=== PATIENT | male | born 2000 | race Caucasian/White ===

== ENCOUNTER 2018-01-09 20:22 | Emergency (ER) | payer BC, OTHER ==
[2018-01-09 20:47] VITALS: BP 162/85; PULSE 90; RESP 18; TEMP 98.7
[2018-01-09] MEDS ORDERED: DIPH,PERTUS(ACELL)TETVAC-LF 0.5 ML VIAL IM ONE (20:57)
[2018-01-09] MEDS ORDERED: LIDOCAINE 1% (PF) 10MG/ML VIAL SQ STA (21:04)
[2018-01-09] MEDS ORDERED: LIDOCAINE 1% INJ 10MG/ML (20 ML MDV) SQ ONE (21:26)
[2018-01-09] MEDS ORDERED: CEPHALEXIN 500MG STARTER PACK 4 CAP BTL PO STA (21:30)
--- NOTE | 2018-01-09 21:32 | ED ---
Skin/Abscess/FB HPI - General Chief complaint: Skin/Abscess/Foreign Body Stated complaint: [place] in leg Time Seen by Provider: 01/09/18 20:54 Source: patient, RN notes reviewed, old records reviewed Mode of arrival: ambulatory Limitations: no limitations - History of Present Illness Initial comments: This is a 17 year old male with fish hook in L calf. He reports he was working to get a perdomo off the line when the fishook came back and hit his leg. Patient could not take it out himself. He needs a new tetanus vaccine. - Related Data Previous Rx's Medication Instructions Recorded Ondansetron Odt [Zofran ODT] 4 mg PO Q8HR PRN #5 tab 04/15/15 Sulfamethox-Tmp 800-160Mg [Bactrim 1 each PO Q12HR #20 tab 04/15/15 DS 800-160 mg] methylPREDNISolone Dose Pack 4 mg PO DIRECTED #21 package 04/15/15 [Medrol Dose Pack] Cephalexin [Keflex] 500 mg PO Q8HR #21 cap 01/09/18 Allergies Allergy/AdvReac Type Severity Reaction Status Date / Time No Known Allergies Allergy Verified 01/09/18 20:47 Review of Systems ROS Statement: Those systems with pertinent positive or pertinent negative responses have been documented in the HPI. ROS Other: All systems not noted in ROS Statement are negative. Past Medical History Past Medical History: No Reported History History of Any Multi-Drug Resistant Organisms: None Reported Past Surgical History: No Surgical Hx Reported Past Psychological History: No Psychological Hx Reported Smoking Status: Never smoker Past Alcohol Use History: None Reported Past Drug Use History: None Reported General Exam - General Exam Comments Initial Comments: Well appearing 17 year old male. Limitations: no limitations Head exam: Present: atraumatic, normocephalic, normal inspection Eye exam: Present: normal appearance, PERRL, EOMI. Absent: scleral icterus, conjunctival injection, periorbital swelling ENT exam: Present: normal exam, mucous membranes moist Neck exam: Present: normal inspection. Absent: tenderness, meningismus, lymphadenopathy Respiratory exam: Present: normal lung sounds bilaterally. Absent: respiratory distress, wheezes, rales, rhonchi, stridor Cardiovascular Exam: Present: regular rate, normal rhythm, normal heart sounds. Absent: systolic murmur, diastolic murmur, rubs, gallop, clicks Extremities exam: Present: normal inspection, full ROM, normal capillary refill , other ([place] in medial L calf. ). Absent: tenderness, pedal edema, joint swelling, calf tenderness Back exam: Present: normal inspection Neurological exam: Present: alert, oriented X3, CN II-XII intact Psychiatric exam: Present: normal affect, normal mood Course Vital Signs 01/09/18 20:43 Temperature 98.7 F Pulse Rate 90 Respiratory 18 Rate Blood Pressure 162/85 O2 Sat by Pulse 100 Oximetry Procedures - Procedures Initial comment: [place] removal: Skin was cleansed with iodine over L calf. 3 cc of 1% lidocaine instilled around the area of the daysi. I used through and through technique and advanced the hook and daysi through the skin. Daysi was removed with pliers and I reversed the rest of the hook. Wound was irrigated with 2L sterile water and iodine. Medical Decision Making - Medical Decision Making 17 year old male with fishhook in superficial left Calf. I anesthetized the area and removed the hook without difficulty. See procedure note. Patient was given updated TDAP. I will place the patient on keflex for infection prevention. Return parameters discussed. Disposition Clinical Impression: Fish hook injury of lower leg Disposition: HOME SELF-CARE Condition: Good Instructions: Puncture Wound (ED) Additional Instructions: Monitor for any redness, swelling or drainage. Patient should take antibiotics as directed. Return to ED if any alarming signs or symptoms occur. Prescriptions: Cephalexin [Keflex] 500 mg PO Q8HR #21 cap Is patient prescribed a controlled substance at d/c from ED?: No When asked, does pt state using other controlled substances?: No If prescribed controlled substance>3 days was MAPS reviewed?: No If opioid is for acute pain is fill amount 7 days or less?: No If Rx opioid, was Start Talking consent form obtained?: No Referrals: Silvia Emanuel MD [Primary Care Provider] - 1-2 days Time of Disposition: 21:30
== END 2018-01-09 21:41 | disposition home or self-care (01) ==
LOC: EC 20:22
DX: S80.852A Superficial foreign body, left lower leg, initial encounter (principal); Z23 Encounter for immunization; W45.8XXA Other foreign body or object entering through skin, initial encounter
CPT/HCPCS: 90715; 99283; 90471; J2001

== ENCOUNTER 2019-10-11 23:59 | Emergency (ER) | payer BC, OTHER ==
[2019-10-12 00:08] VITALS: BP 147/90; PULSE 106; RESP 18; TEMP 98
--- NOTE | 2019-10-12 00:25 | ED ---
ENT HPI - General Chief complaint: ENT Stated complaint: BLOODY NOSE Time Seen by Provider: 10/12/19 00:11 Source: patient Mode of arrival: ambulatory Limitations: no limitations - History of Present Illness Initial comments: Patient is a 18-year-old male with no significant past medical history presenting to the emergency department with a chief complaint. Patient states the nosebleed occurred about 2 hours ago. States it started on the right nostril as he was sitting on a table. Patient states he did not apply any pressure to the nose, started he inserted multiple pieces of toilet paper. States the bleeding was ongoing for about 20 minutes before it resolved. States one of his family members is a medical professional advised him to come to the ED for evaluation. - Related Data Previous Rx's Medication Instructions Recorded Ondansetron Odt [Zofran ODT] 4 mg PO Q8HR PRN #5 tab 04/15/15 Sulfamethox-Tmp 800-160Mg [Bactrim 1 each PO Q12HR #20 tab 04/15/15 DS 800-160 mg] methylPREDNISolone Dose Pack 4 mg PO DIRECTED #21 package 04/15/15 [Medrol Dose Pack] Cephalexin [Keflex] 500 mg PO Q8HR #21 cap 01/09/18 Allergies Allergy/AdvReac Type Severity Reaction Status Date / Time No Known Allergies Allergy Verified 01/09/18 20:47 Review of Systems ROS Statement: Those systems with pertinent positive or pertinent negative responses have been documented in the HPI. ROS Other: All systems not noted in ROS Statement are negative. Past Medical History Past Medical History: No Reported History History of Any Multi-Drug Resistant Organisms: None Reported Past Surgical History: No Surgical Hx Reported Past Psychological History: No Psychological Hx Reported Smoking Status: Current every day smoker Past Alcohol Use History: None Reported Past Drug Use History: None Reported General Exam Limitations: no limitations General appearance: alert, in no apparent distress Head exam: Present: atraumatic, normocephalic, normal inspection Eye exam: Present: normal appearance, PERRL, EOMI Pupils: Present: normal accommodation ENT exam: Present: normal exam, normal oropharynx (Residual blood in the right nostril. Unable to detect a source of the bleeding. No bleeding detected and posterior pharynx.), mucous membranes moist, TM's normal bilaterally, normal external ear exam Neck exam: Present: normal inspection, full ROM Respiratory exam: Present: normal lung sounds bilaterally Cardiovascular Exam: Present: regular rate, normal rhythm, normal heart sounds Extremities exam: Present: normal inspection, full ROM Back exam: Present: normal inspection, full ROM Neurological exam: Present: alert, oriented X3 Psychiatric exam: Present: normal affect, normal mood Skin exam: Present: warm, dry, intact, normal color Course Vital Signs 10/12/19 00:03 Temperature 98 F Pulse Rate 106 H Respiratory 18 Rate Blood Pressure 147/90 O2 Sat by Pulse 98 Oximetry Medical Decision Making - Medical Decision Making Patient is 18-year-old male presenting to the emergency department with a chief complaint of a nosebleed. Nosebleed occurred for less than 20 minutes patient never applied pressure to the nose. On initial evaluation, the nosebleed had resolved. Physical examination it was not able to locate the source of the bleed. There was some residual blood in the right nostril. This appears to be anterior epistaxis from the right nostril. Patient has no past medical history of any coagulopathies. Patient advised to apply firm pressure to the nose whenever he develops another bleed. He was advised to avoid highly demented areas. I gave the patient a nose clamp. Return parameters discussed with patient was understanding and agreeable. Case discussed with physician. Disposition Clinical Impression: Acute anterior epistaxis Disposition: HOME SELF-CARE Condition: Stable Instructions (If sedation given, give patient instructions): Nosebleed (ED) Additional Instructions: Developed a nosebleed, apply firm pressure on the nose. If he continues to have repetitive nosebleeds, apply Vaseline in both nostrils every morning and night. Avoid highly vented areas. Is patient prescribed a controlled substance at d/c from ED?: No Referrals: Silvia Emanuel MD [Primary Care Provider] - 1-2 days Time of Disposition: 00:25
== END 2019-10-12 00:35 | disposition home or self-care (01) ==
LOC: EC 23:59
DX: R04.0 Epistaxis (principal); F17.200 Nicotine dependence, unspecified, uncomplicated
CPT/HCPCS: 99283

== ENCOUNTER 2021-11-03 12:44 | Emergency (ER) | payer BC, OTHER ==
[2021-11-03 12:47] VITALS: BP 162/83; PULSE 93; RESP 20; TEMP 97
--- NOTE | 2021-11-03 13:20 | XR ---
EXAMINATION TYPE: XR ankle complete RT DATE OF EXAM: 11/03/2021 COMPARISON: Tibia and fibula 09/18/2014 HISTORY: Injury, pain TECHNIQUE: Three-view right ankle FINDINGS: No acute fractures or dislocations are evident. There is some mild soft tissue swelling devika ng the lateral malleolus and anterior ankle. Follow up exams can be performed 7-10 days from acute trauma for continued pain. MRI could be perform ed for soft tissue evaluation. IMPRESSION: 1. No acute osseous abnormality. 2. Soft tissue swelling over the anterior and lateral right ankle
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
== END 2021-11-03 14:07 | disposition home or self-care (01) ==
LOC: EC 12:44
DX: S93.401A Sprain of unspecified ligament of right ankle, initial encounter (principal); F17.200 Nicotine dependence, unspecified, uncomplicated; X50.1XXA Overexertion from prolonged static or awkward postures, initial encounter
CPT/HCPCS: 73610; 99283; L4350

== ENCOUNTER 2025-01-31 10:18 | Emergency (ER) | payer OTHER ==
[2025-01-31 10:47] VITALS: RESP 20
--- NOTE | 2025-01-31 11:02 | ED ---
General Adult HPI - General Chief complaint: Skin/Abscess/Foreign Body Stated complaint: Abd pain Time Seen by Provider: 01/31/25 10:34 Source: patient, RN notes reviewed Mode of arrival: ambulatory Limitations: no limitations - History of Present Illness Initial comments: This is a 24-year-old male presenting for abdominal pain (01/13) x 3 days. Patient endorses pain and erythema around his umbilical region, described as constant and stabbing with associated nausea. Patient denies any lifting prior to start of symptoms or associated fever/chills, constipation, hematochezia, melena, anorexia, vomiting. Onset/Timin -: days(s) Location: abdomen Radiation: non-radiation Severity scale (1-10): 7 Quality: stabbing Consistency: constant Improves with: immobilization Worsens with: movement Associated Symptoms: nausea/vomiting Treatments Prior to Arrival: NSAID - Related Data Previous Rx's Medication Instructions Recorded Ondansetron Odt [Zofran ODT] 4 mg PO Q8HR PRN #5 tab 04/15/15 Sulfamethox-Tmp 800-160Mg [Bactrim 1 each PO Q12HR #20 tab 04/15/15 DS 800-160 mg] methylPREDNISolone Dose Pack 4 mg PO DIRECTED #21 package 04/15/15 [Medrol Dose Pack] Cephalexin [Keflex] 500 mg PO Q8HR #21 cap 01/09/18 Ibuprofen [Motrin] 800 mg PO Q6HR #30 tab 11/03/21 Ibuprofen [Motrin] 800 mg PO Q8HR PRN #30 tab 01/31/25 Allergies Allergy/AdvReac Type Severity Reaction Status Date / Time No Known Allergies Allergy Verified 02/01/25 01:54 Review of Systems ROS Statement: Those systems with pertinent positive or pertinent negative responses have been documented in the HPI. ROS Other: All systems not noted in ROS Statement are negative. Past Medical History Past Medical History: No Reported History History of Any Multi-Drug Resistant Organisms: None Reported Past Surgical History: No Surgical Hx Reported Past Psychological History: No Psychological Hx Reported Smoking Status: Current every day smoker Past Alcohol Use History: None Reported Past Drug Use History: None Reported General Exam Limitations: no limitations General appearance: alert, in no apparent distress Head exam: Present: atraumatic, normocephalic, normal inspection Eye exam: Present: normal appearance, PERRL, EOMI. Absent: scleral icterus, conjunctival injection, periorbital swelling ENT exam: Present: normal exam, mucous membranes moist Neck exam: Present: normal inspection. Absent: tenderness, meningismus, lymphadenopathy Respiratory exam: Present: normal lung sounds bilaterally. Absent: respiratory distress, wheezes, rales, rhonchi, stridor Cardiovascular Exam: Present: regular rate, normal rhythm, normal heart sounds. Absent: systolic murmur, diastolic murmur, rubs, gallop, clicks GI/Abdominal exam: Present: soft, tenderness (Positive significant umbilical tenderness with surrounding erythema), diminished bowel sounds, hypoactive bowel sounds, hernia (Possible small, nonreducible and significantly tender right umbilical hernia). Absent: distended, guarding, rebound, rigid Extremities exam: Present: normal inspection, full ROM, normal capillary refill. Absent: tenderness, pedal edema, joint swelling, calf tenderness Back exam: Present: normal inspection Neurological exam: Present: alert, oriented X3, CN II-XII intact Psychiatric exam: Present: normal affect, normal mood Skin exam: Present: warm, dry, intact, normal color. Absent: rash Course Vital Signs 01/31/25 01/31/25 10:43 13:41 Temperature 97.9 F 98.1 F Pulse Rate 67 72 Respiratory 20 20 Rate Blood Pressure 130/52 126/68 O2 Sat by Pulse 99 99 Oximetry Medical Decision Making - Medical Decision Making Was pt. sent in by a medical professional or institution (, PA, [facility], urgent care, hospital, or [facility]...) When possible be specific @ -No Did you speak to anyone other than the patient for history (EMS, parent, family, police, friend...)? What history was obtained from this source @ -No Did you review nursing and triage notes (agree or disagree)? Why? @ -I reviewed and agree with nursing and triage notes Were old charts reviewed (outside hosp., previous admission, EMS record, old EKG, old radiological studies, urgent care reports/EKG's, [facility] records)? Report findings @ -No old charts were reviewed Differential Diagnosis (chest pain, altered mental status, abdominal pain women, abdominal pain men, vaginal bleeding, weakness, fever, dyspnea, syncope, headache, dizziness, GI bleed, back pain, seizure, CVA, palpatations, mental health, musculoskeletal)? @ -Differential Abdominal Pain Men: Appendicitis, cholecystitis, diverticulosis, ischemic bowel, pancreatitis, hepatitis, UTI, gastroenteritis, AAA, incarcerated hernia, bowel obstruction, constipation, inflammatory bowel, hepatitis, peptic ulcer disease, splenic in farction, perforated viscus, testicular torsion, this is not meant to be an all- inclusive list EKG interpreted by me (3pts min.). @ -Not done X-rays interpreted by me (1pt min.). @ -None done CT interpreted by me (1pt min.). @ -AP CT shows increased attenuation at umbilicus right of midline indicating possible fat-containing hernia with strangulation without evidence of entrapped bowel or drainable abscess. U/S interpreted by me (1pt. min.). @ -None done What testing was considered but not performed or refused? (CT, X-rays, U/S, labs)? Why? @ -None What meds were considered but not given or refused? Why? @ -None Did you discuss the management of the patient with other professionals (professionals i.e. , PA, [employer], lab, RT, psych nurse, nephrology social worker, professor sculpture, teacher, forward air controller/air officer, caseworker intake)? Give summary @ -Dr. Sanchez contacted, advising patient follow-up for outpatient evaluation and treatment. Was smoking cessation discussed for >3mins.? @ -No Was critical care preformed (if so, how long)? @ -No Were there social determinants of health that impacted care today? How? (Homelessness, low income, unemployed, alcoholism, drug addiction, transportation, low edu. Level, literacy, decrease access to med. care, detention, rehab)? @ -No Was there de-escalation of care discussed even if they declined (Discuss DNR or withdrawal of care, Hospice)? DNR status @ -No What co-morbidities impacted this encounter? (DM, HTN, Smoking, COPD, CAD, Cancer, CVA, ARF, Chemo, Hep., AIDS, mental health diagnosis, sleep apnea, morbid obesity)? @ -None Was patient admitted / discharged? Hospital course, mention meds given and route, prescriptions, significant lab abnormalities, going to OR and other pertinent info. @ -Patient provided IV normal saline and Dilaudid. Lab work and UA generally unremarkable. WBC 10.80. AP CT shows increased attenuation at umbilicus right of midline indicating possible fat-containing hernia with strangulation without evidence of entrapped bowel or drainable abscess. Dr. Sanchez contacted, advising patient follow-up for outpatient evaluation and treatment. Dr. Sanchez able to see patient in ER room for personal evaluation prior to discharge. Patient discharged with T3 starter pack with Motrin 800 sent to patient's pharmacy. Discussed patient with Dr. Washington. Undiagnosed new problem with uncertain prognosis? @ -No Drug Therapy requiring intensive monitoring for toxicity (Heparin, Nitro, Insulin, Cardizem)? @ -No Were any procedures done? @ -No Diagnosis/symptom? @ -Strangulated fat-containing umbilical hernia Acute, or Chronic, or Acute on Chronic? @ -Acute Uncomplicated (without systemic symptoms) or Complicated (systemic symptoms)? @ -Uncomplicated Side effects of treatment? @ -No Exacerbation, Progression, or Severe Exacerbation? @ -No Poses a threat to life or bodily function? How? (Chest pain, [place], [place], pneumonia, PE, COPD, DKA, ARF, appy, cholecystitis, CVA, Diverticulitis, Homicidal, Suicidal, threat to staff... and all critical care pts) @ -No - Lab Data Result diagrams: 01/31/25 11:09 01/31/25 11:09 Lab Results 01/31/25 01/31/25 01/31/25 Range/Units 11:09 11:09 11:09 WBC 10.80 H (4.50-10.00) 10*3/uL RBC 5.33 (4.40-5.60) 10*6/uL Hgb 16.5 (13.0-17.0) g/dL Hct 46.2 (39.6-50.0) % MCV 86.7 (80.0-97.0) fL MCH 31.0 (27.0-32.0) pg MCHC 35.7 (32.0-37.0) g/dL Plt Count 256 (140-440) 10*3/uL MPV 10.2 (9.5-12.2) fL Immature Gran % (Auto) 0.3 % Neutrophils % 68.1 % Lymphocytes % 19.8 % Monocytes % 10.5 % Eosinophils % 1.1 % Basophils % 0.2 % Immature Gran # 0.03 (0.00-0.04) 10*3/uL Neutrophils # 7.36 (1.80-7.70) 10*3/uL Lymphocytes # 2.14 (0.90-5.00) 10*3/uL Monocytes # 1.13 H (0.20-1.00) 10*3/uL Eosinophils # 0.12 (0.04-0.35) 10*3/uL Basophils # 0.02 (0.00-0.10) 10*3/uL Sodium 141 (137-145) mmol/L Potassium 4.2 (3.5-5.1) mmol/L Chloride 101 (98-107) mmol/L Carbon Dioxide 27 (22-30) mmol/L Anion Gap 13 mmol/L BUN 14 (9-20) mg/dL Creatinine 0.98 (0.66-1.25) mg/dL Est GFR (CKD-EPI)AfAm >90 (>60 ml/min/1.73 sqM) Est GFR (CKD-EPI)NonAf >90 (>60 ml/min/1.73 sqM) Glucose 98 (74-99) mg/dL Plasma Lactic Acid John (0.7-2.0) mmol/L Calcium 9.6 (8.4-10.2) mg/dL Total Bilirubin 1.0 (0.2-1.3) mg/dL AST 29 (17-59) U/L ALT 41 (4-49) U/L Alkaline Phosphatase 57 (38-126) U/L Total Protein 7.2 (6.3-8.2) g/dL Albumin 4.6 (3.5-5.0) g/dL Urine Color Colorless Urine Appearance Clear (Clear) Urine pH 7.0 (5.0-8.0) Ur Specific [place] 1.008 (1.001-1.035) Urine Protein Negative (Negative) Urine Glucose (UA) Negative (Negative) Urine Ketones Negative (Negative) Urine Blood Negative (Negative) Urine Nitrite Negative (Negative) Urine Bilirubin Negative (Negative) Urine Urobilinogen <2.0 (<2.0) mg/dL Ur Leukocyte Esterase Negative (Negative) 01/31/25 Range/Units 11:09 WBC (4.50-10.00) 10*3/uL RBC (4.40-5.60) 10*6/uL Hgb (13.0-17.0) g/dL Hct (39.6-50.0) % MCV (80.0-97.0) fL MCH (27.0-32.0) pg MCHC (32.0-37.0) g/dL Plt Count (140-440) 10*3/uL MPV (9.5-12.2) fL Immature Gran % (Auto) % Neutrophils % % Lymphocytes % % Monocytes % % Eosinophils % % Basophils % % Immature Gran # (0.00-0.04) 10*3/uL Neutrophils # (1.80-7.70) 10*3/uL Lymphocytes # (0.90-5.00) 10*3/uL Monocytes # (0.20-1.00) 10*3/uL Eosinophils # (0.04-0.35) 10*3/uL Basophils # (0.00-0.10) 10*3/uL Sodium (137-145) mmol/L Potassium (3.5-5.1) mmol/L Chloride (98-107) mmol/L Carbon Dioxide (22-30) mmol/L Anion Gap mmol/L BUN (9-20) mg/dL Creatinine (0.66-1.25) mg/dL Est GFR (CKD-EPI)AfAm (>60 ml/min/1.73 sqM) Est GFR (CKD-EPI)NonAf (>60 ml/min/1.73 sqM) Glucose (74-99) mg/dL Plasma Lactic Acid John 0.8 (0.7-2.0) mmol/L Calcium (8.4-10.2) mg/dL Total Bilirubin (0.2-1.3) mg/dL AST (17-59) U/L ALT (4-49) U/L Alkaline Phosphatase (38-126) U/L Total Protein (6.3-8.2) g/dL Albumin (3.5-5.0) g/dL Urine Color Urine Appearance (Clear) Urine pH (5.0-8.0) Ur Specific [place] (1.001-1.035) Urine Protein (Negative) Urine Glucose (UA) (Negative) Urine Ketones (Negative) Urine Blood (Negative) Urine Nitrite (Negative) Urine Bilirubin (Negative) Urine Urobilinogen (<2.0) mg/dL Ur Leukocyte Esterase (Negative) Disposition Clinical Impression: Strangulated umbilical hernia Disposition: HOME SELF-CARE Condition: Fair Instructions (If sedation given, give patient instructions): Umbilical Hernia (ED) Additional Instructions: Alternate Tylenol/Motrin every 4 hours for pain. Follow-up with general surgeon for ongoing management of fat-containing strangulated umbilical hernia Prescriptions: Ibuprofen [Motrin] 800 mg PO Q8HR PRN #30 tab PRN Reason: Pain Is patient prescribed a controlled substance at d/c from ED?: No Referrals: Silvia Emanuel MD [Primary Care Provider] - 1-2 days Don David MD [STAFF PHYSICIAN] - 02/03/25 Time of Disposition: 13:26
[2025-01-31] MEDS: SODIUM CHLORIDE 0.9% 1,000 ML IV STA (11:08)
[2025-01-31] MEDS: HYDROmorphone 1 MG/ML 1 ML SYRINGE IVP STA (11:15)
[2025-01-31 11:18] LABS: Basophils # (A) 0.02 10*3/uL (0.00-0.10); Basophils % (A) 0.2 %; Eosinophils # (A) 0.12 10*3/uL (0.04-0.35); Eosinophils % (A) 1.1 %; HCT 46.2 % (39.6-50.0); HGB 16.5 g/dL (13.0-17.0); Lymphocytes # (A) 2.14 10*3/uL (0.90-5.00); Lymphocytes % (A) 19.8 %; MCH 31.0 pg (27.0-32.0); MCHC 35.7 g/dL (32.0-37.0); MCV 86.7 fL (80.0-97.0); Monocytes # (A) 1.13 10*3/uL (0.20-1.00); Monocytes % (A) 10.5 %; Neutrophils # (A) 7.36 10*3/uL (1.80-7.70); Neutrophils % (A) 68.1 %; Platelet Count 256 10*3/uL (140-440); RBC 5.33 10*6/uL (4.40-5.60); RDW 12.7 % (11.5-14.5); WBC 10.80 10*3/uL (4.50-10.00)
[2025-01-31 11:19] LABS: Bilirubin,Urine Negative (Negative); Blood,Urine Negative (Negative); Color,Urine Colorless; Glucose,Urine (UA) Negative (Negative); Ketones,Urine Negative (Negative); Leukocyte Esterase,Urine Negative (Negative); Nitrite,Urine Negative (Negative); PH, Urine 7.0 (5.0-8.0); Protein,Urine Negative (Negative); Specific Gravity,Urine 1.008 (1.001-1.035); Urobilinogen,Urine <2.0 mg/dL (<2.0)
[2025-01-31 11:35] LABS: ALT 41 U/L (4-49); AST 29 U/L (17-59); African American GFR (CKD) >90 (>60 ml/min/1.73 sqM); Albumin 4.6 g/dL (3.5-5.0); Alkaline Phosphatase 57 U/L (38-126); Anion Gap 13 mmol/L; Blood Urea Nitrogen 14 mg/dL (9-20); Calcium 9.6 mg/dL (8.4-10.2); Carbon Dioxide 27 mmol/L (22-30); Chloride 101 mmol/L (98-107); Glucose 98 mg/dL (74-99); Non-African American GFR(CKD) >90 (>60 ml/min/1.73 sqM); Potassium 4.2 mmol/L (3.5-5.1); Sodium 141 mmol/L (137-145); Total Protein 7.2 g/dL (6.3-8.2)
--- NOTE | 2025-01-31 12:24 | CT ---
EXAMINATION TYPE: CT abdomen pelvis w con DATE OF EXAM: 01/31/2025 12:03 PM COMPARISON: None. CLINICAL INDICATION: Male, 24 years old with history of Nonreducible umbilical hernia, TTP, Nonreduci ble umbilical hernia, TTP TECHNIQUE:CT scan of the abdomen and pelvis is performed without Oral Contrast and with IV Contrast, patient injected with 100ml mL of Isovue 300. CT DLP: 1160.6 mGycm, Automated exposure control for dose reduction was used. FINDINGS: LUNG BASES-: No visible nodule. No infiltrate. LIVER/GB: No calcified gallstones. No space occupying hepatic lesion. Biliary tree is of normal ca liber. PANCREAS: No inflammation. No distinct mass. SPLEEN: No splenic enlargement. No lesion seen. ADRENALS: No nodule. No thickening. KIDNEYS/BLADDER: No hydronephrosis. No nephrolithiasis. No distinct renal mass. Urinary bladder g rossly unremarkable. BOWEL: Normal appendix. Normal bowel caliber. No inflammation. GENITAL ORGANS: No gross abnormality. LYMPH NODES: No greater than 1cm abdominal or pelvic lymph nodes are appreciated. AORTA: No significant abnormality. OSSEOUS STRUCTURES: No significant abnormality is seen. OTHER: There is increased attenuation at the level of the umbilicus just to the right of midline. The re is no evidence for entrapped bowel. This could reflect fat containing hernia with strangulation an d therefore increased attenuation. Correlate clinically. Underlying infection is not excluded. No [place] inable abscess seen. IMPRESSION: 1. There is increased attenuation at the level of the umbilicus just to the right of midline. There i s no evidence for entrapped bowel. This could reflect fat containing hernia with strangulation and th erefore increased attenuation. Correlate clinically. Underlying infection is not excluded. No drainab le abscess seen. [facility], , 01/31/2025 12:22 PM
[2025-01-31] MEDS: ACET/COD 300 MG/30 MG STARTER PACK TAB BTL PO STA (13:35)
--- NOTE | 2025-01-31 13:36 | P.GSCN ---
History of Present Illness Consult date: 01/31/25 History of present illness: CHIEF COMPLAINT: Umbilical hernia HISTORY OF PRESENT ILLNESS: This is a 24-year-old male who presented to the hospital with complaints of pain at his bellybutton for about 3 days. Patient reports he is had hernia there for a while. CT scan abdomen pelvis reports increased attenuation at the level of the umbilicus just to the right of the midline. No evidence of entrapped bowel. This could reflect fat-containing hernia with strangulation. No leukocytosis present. Afebrile. Patient seen and examined with Dr. David PAST MEDICAL HISTORY: none PAST SURGICAL HISTORY: none MEDICATIONS: See below ALLERGIES: See below SOCIAL HISTORY: No illicit drug use. REVIEW OF SYSTEMS: CONSTITUTIONAL: Denies fever or chills. HEENT: Denies blurred vision, vision changes, or eye pain. Denies hemoptysis CARDIOVASCULAR: Denies chest pain or pressure. RESPIRATORY: No shortness of breath. GASTROINTESTINAL: See HPI for pertinent findings HEMATOLOGIC: Denies bleeding disorders. GENITOURINARY: Denies any blood in urine or increased urinary frequency. SKIN: Denies pruitis. Denies rash. PHYSICAL EXAM: VITAL SIGNS: Reviewed GENERAL: Well-developed in no acute distress. HEENT: No sclera icterus. Extraocular movements grossly intact. Moist buccal mucosa. Head is atraumatic, normocephalic. No nasal drainage. ABDOMEN: Soft. Nondistended. Tenderness at the umbilicus. Mild erythema. Small umbilical hernia nonreducible NEUROLOGIC: Alert and oriented. Cranial nerves II through XII grossly intact. LABORATORY DATA: WBC 10.8 Hgb 16.5 IMAGING: CT scan as stated above ASSESSMENT: 1. Fat incarcerated umbilical hernia PLAN: - Recommend outpatient repair of umbilical hernia - Motrin as needed for pain - Okay for discharge from surgical standpoint Physician Efficiency Engineer note has been reviewed by physician. Signing provider agrees with the documented findings, assessment, and plan of care. Past Medical History Past Medical History: No Reported History History of Any Multi-Drug Resistant Organisms: None Reported Past Surgical History: No Surgical Hx Reported Past Psychological History: No Psychological Hx Reported Smoking Status: Current every day smoker Past Alcohol Use History: None Reported Past Drug Use History: None Reported Medications and Allergies Home Medications Medication Instructions Recorded Confirmed Type Ondansetron Odt [Zofran ODT] 4 mg PO Q8HR PRN #5 tab 04/15/15 Rx Sulfamethox-Tmp 800-160Mg [Bactrim 1 each PO Q12HR #20 tab 04/15/15 Rx DS 800-160 mg] methylPREDNISolone Dose Pack 4 mg PO DIRECTED #21 package 04/15/15 Rx [Medrol Dose Pack] Cephalexin [Keflex] 500 mg PO Q8HR #21 cap 01/09/18 Rx Ibuprofen [Motrin] 800 mg PO Q6HR #30 tab 11/03/21 Rx Ibuprofen [Motrin] 800 mg PO Q8HR PRN #30 tab 01/31/25 Rx Allergies Allergy/AdvReac Type Severity Reaction Status Date / Time No Known Allergies Allergy Verified 01/31/25 10:47 Surgical - Exam Vital Signs Temp Pulse Resp BP Pulse Ox 97.9 F 67 20 130/52 99 01/31/25 10:43 01/31/25 10:43 01/31/25 10:43 01/31/25 10:43 01/31/25 10:43 Results - Labs 01/31/25 11:09 01/31/25 11:09 Abnormal Lab Results - Last 24 Hours (Table) 01/31/25 Range/Units 11:09 WBC 10.80 H (4.50-10.00) 10*3/uL Monocytes # 1.13 H (0.20-1.00) 10*3/uL Diabetes panel 01/31/25 Range/Units 11:09 Sodium 141 (137-145) mmol/L Potassium 4.2 (3.5-5.1) mmol/L Chloride 101 (98-107) mmol/L Carbon Dioxide 27 (22-30) mmol/L BUN 14 (9-20) mg/dL Creatinine 0.98 (0.66-1.25) mg/dL Glucose 98 (74-99) mg/dL Calcium 9.6 (8.4-10.2) mg/dL AST 29 (17-59) U/L ALT 41 (4-49) U/L Alkaline Phosphatase 57 (38-126) U/L Total Protein 7.2 (6.3-8.2) g/dL Albumin 4.6 (3.5-5.0) g/dL Calcium panel 01/31/25 Range/Units 11:09 Calcium 9.6 (8.4-10.2) mg/dL Albumin 4.6 (3.5-5.0) g/dL Pituitary panel 01/31/25 Range/Units 11:09 Sodium 141 (137-145) mmol/L Potassium 4.2 (3.5-5.1) mmol/L Chloride 101 (98-107) mmol/L Carbon Dioxide 27 (22-30) mmol/L BUN 14 (9-20) mg/dL Creatinine 0.98 (0.66-1.25) mg/dL Glucose 98 (74-99) mg/dL Calcium 9.6 (8.4-10.2) mg/dL Adrenal panel 01/31/25 Range/Units 11:09 Sodium 141 (137-145) mmol/L Potassium 4.2 (3.5-5.1) mmol/L Chloride 101 (98-107) mmol/L Carbon Dioxide 27 (22-30) mmol/L BUN 14 (9-20) mg/dL Creatinine 0.98 (0.66-1.25) mg/dL Glucose 98 (74-99) mg/dL Calcium 9.6 (8.4-10.2) mg/dL Total Bilirubin 1.0 (0.2-1.3) mg/dL AST 29 (17-59) U/L ALT 41 (4-49) U/L Alkaline Phosphatase 57 (38-126) U/L Total Protein 7.2 (6.3-8.2) g/dL Albumin 4.6 (3.5-5.0) g/dL
[2025-01-31 13:43] VITALS: BP 126/68; PULSE 72; TEMP 98.1
== END 2025-01-31 13:43 | disposition home or self-care (01) ==
LOC: EC 10:18
CPT/HCPCS: 36415; 74177; 80053; 81003; 83605; 85025; 96361; 96374; 99283

== ENCOUNTER 2025-02-01 01:37 | Emergency (ER) | payer OTHER ==
[2025-02-01 01:54] VITALS: TEMP 97.9
--- NOTE | 2025-02-01 03:34 | ED ---
General Adult HPI - General Source: patient, RN notes reviewed Mode of arrival: ambulatory Limitations: no limitations <Serina Webber - Last Filed: 02/01/25 03:34> <Arline Regalado - Last Filed: 02/03/25 11:55> - General Chief complaint: Recheck/Abnormal Lab/Rx Stated complaint: hernia leaking Time Seen by Provider: 02/01/25 01:55 - History of Present Illness Initial comments: Patient is a pleasant previously healthy 24-year-old man presenting today for discharge from his umbilicus. Patient was in the ER yesterday for erythema and pain around his umbilicus, was diagnosed with a fat-containing hernia, seen by Dr. Sanchez and recommended for outpatient treatment. Patient was taking a shower this evening and then found that his umbilicus was leaking clear fluid. He states his abdominal pain has since resolved. (Arline Regalado) - Related Data Previous Rx's Medication Instructions Recorded Ondansetron Odt [Zofran ODT] 4 mg PO Q8HR PRN #5 tab 04/15/15 Sulfamethox-Tmp 800-160Mg [Bactrim 1 each PO Q12HR #20 tab 04/15/15 DS 800-160 mg] methylPREDNISolone Dose Pack 4 mg PO DIRECTED #21 package 04/15/15 [Medrol Dose Pack] Cephalexin [Keflex] 500 mg PO Q8HR #21 cap 01/09/18 Ibuprofen [Motrin] 800 mg PO Q6HR #30 tab 11/03/21 Ibuprofen [Motrin] 800 mg PO Q8HR PRN #30 tab 01/31/25 Allergies Allergy/AdvReac Type Severity Reaction Status Date / Time No Known Allergies Allergy Verified 02/01/25 01:54 Review of Systems ROS Other: All systems not noted in ROS Statement are negative. <Serina Webber - Last Filed: 02/01/25 03:34> ROS Other: All systems not noted in ROS Statement are negative. <Arline Regalado - Last Filed: 02/03/25 11:55> ROS Statement: Those systems with pertinent positive or pertinent negative responses have been documented in the HPI. Past Medical History Past Medical History: No Reported History History of Any Multi-Drug Resistant Organisms: None Reported Past Surgical History: No Surgical Hx Reported Past Psychological History: No Psychological Hx Reported Smoking Status: Current every day smoker Past Alcohol Use History: None Reported Past Drug Use History: None Reported <Serina Webber - Last Filed: 02/01/25 03:34> General Exam Limitations: no limitations <Serina Webber - Last Filed: 02/01/25 03:34> <Arline Regalado - Last Filed: 02/03/25 11:55> - General Exam Comments Initial Comments: Focused physical exam: Patient well appearing, sleeping, awakened easily, in NAD. Abdomen has mild erythema, not well demarkated, around umbilicus. Scant yellow clear fluid at umbilicus. Abdomen soft and nontender without guarding or palpable mass (Arline Regalado) Course Vital Signs 02/01/25 02/01/25 02/01/25 01:48 05:46 07:17 Temperature 97.9 F 97.9 F Pulse Rate 74 89 59 L Respiratory 18 16 16 Rate Blood Pressure 181/74 125/71 110/73 O2 Sat by Pulse 100 97 98 Oximetry Medical Decision Making - Lab Data Result diagrams: 02/01/25 04:06 02/01/25 04:06 <Arline Regalado - Last Filed: 02/03/25 11:55> - Medical Decision Making Was patient admitted / discharged? Hospital course, mention meds given and route, prescriptions, significant lab abnormalities, going to OR and other pertinent info. @ Discharged- Patient discussed with and signed out to myself, by Serina ANGELES ,pending imaging. Brief HPI as above. Reviewed CT ab/pelvis from01/31/2025, showed increased attenuation at the umbilicus just to the right of the midline, no evidence for entrapped bowel, could reflect fat-containing hernia with strangulation and therefore increased attenuation, underlying infection not excluded no drainable abscess seen. Repeat CT abdomen pelvis was obtained today to ensure no development of abscess, bowel entrapment or perforation. Personally reviewed today's CT, continues to show some fat-containing umbilical hernia. Radiologist read as a "small fat-containing umbilical hernia with marked inflammatory stranding and thickening of the dermis, likely represents infectious or inflammatory etiologies". Case was discussed with Dr. Robledo (patient and family requested to see different surgeon than Dr. Sanchez). States that his associate, Dr. Leyva is in their [place] [facility] this morning. Patient can go to their office this morning for further evaluation by Dr. Leyva. I feel this is reasonable given pt's reassuring labs, no leukocytosis, left shift or lactic acidosis, imaging findings and resolved pain. Updated pt to plan, to which he was understanding and agreeable. Pt discharged to follow up this morning with Dr. Leyva. Discussed with patient importance of monitoring closely for new/worsening/uncontrolled pain, redness, fevers, or constipation and should he experience these symptoms he should return to the ER immediately. In my medical judgment there is currently no evidence of an immediate life- threatening or surgical condition. Discharge is therefore indicated at this silvano e. Discharge treatment instructions, follow up instructions, and appropriate emergency department return precautions were discussed with the patient and/or medical decision maker. Patient and/or medical decision maker expressed understanding of and agreed with the treatment plan, follow up instructions, and emergency department return precaution. All patient's and/or medical decision maker's questions were answered. The patient was advised that a small risk still exists that a serious condition could develop and was therefore instructed to return to the ED for any changes in symptoms, persistent symptoms, inability to obtain proper follow-up or for any further concerns. Patient received verbal and written instructions for this condition. Undiagnosed new problem with uncertain prognosis? @ -No Drug Therapy requiring intensive monitoring for toxicity (Heparin, Nitro, Insulin, Cardizem)? @ -No Were any procedures done? @ -No Diagnosis/symptom? @Fat-containing umbilical hernia Acute, or Chronic, or Acute on Chronic? @ -Acute Uncomplicated (without systemic symptoms) or Complicated (systemic symptoms)? @Uncomplicated Side effects of treatment? @ -No Exacerbation, Progression, or Severe Exacerbation? @ -No Poses a threat to life or bodily function? How? (Chest pain, [place], MA, pneumonia, PE, COPD, DKA, ARF, appy, cholecystitis, CVA, Diverticulitis, Homicidal, Suicidal, threat to staff... and all critical care pts) @ -No, not at time of discharge (Arline Regalado) - Lab Data Lab Results 02/01/25 02/01/25 02/01/25 Range/Units 04:06 04:06 04:06 WBC 8.96 (4.50-10.00) 10*3/uL RBC 4.70 (4.40-5.60) 10*6/uL Hgb 14.7 (13.0-17.0) g/dL Hct 40.7 (39.6-50.0) % MCV 86.6 (80.0-97.0) fL MCH 31.3 (27.0-32.0) pg MCHC 36.1 (32.0-37.0) g/dL Plt Count 233 (140-440) 10*3/uL MPV 10.2 (9.5-12.2) fL Immature Gran % (Auto) 0.4 % Neutrophils % 59.0 % Lymphocytes % 28.9 % Monocytes % 9.7 % Eosinophils % 1.7 % Basophils % 0.3 % Immature Gran # 0.04 (0.00-0.04) 10*3/uL Neutrophils # 5.28 (1.80-7.70) 10*3/uL Lymphocytes # 2.59 (0.90-5.00) 10*3/uL Monocytes # 0.87 (0.20-1.00) 10*3/uL Eosinophils # 0.15 (0.04-0.35) 10*3/uL Basophils # 0.03 (0.00-0.10) 10*3/uL Sodium 140 (137-145) mmol/L Potassium 3.9 (3.5-5.1) mmol/L Chloride 107 (98-107) mmol/L Carbon Dioxide 24 (22-30) mmol/L Anion Gap 9 mmol/L BUN 12 (9-20) mg/dL Creatinine 0.90 (0.66-1.25) mg/dL Est GFR (CKD-EPI)AfAm >90 (>60 ml/min/1.73 sqM) Est GFR (CKD-EPI)NonAf >90 (>60 ml/min/1.73 sqM) Glucose 95 (74-99) mg/dL Plasma Lactic Acid John 0.8 (0.7-2.0) mmol/L Calcium 8.9 (8.4-10.2) mg/dL Total Bilirubin 0.6 (0.2-1.3) mg/dL AST 24 (17-59) U/L ALT 34 (4-49) U/L Alkaline Phosphatase 50 (38-126) U/L Total Protein 6.5 (6.3-8.2) g/dL Albumin 4.1 (3.5-5.0) g/dL Disposition <Serina Webber - Last Filed: 02/01/25 03:34> Is patient prescribed a controlled substance at d/c from ED?: No <Arline Regalado - Last Filed: 02/03/25 11:55> Clinical Impression: Umbilical hernia Disposition: HOME SELF-CARE Condition: Good Instructions (If sedation given, give patient instructions): Umbilical Hernia Repair (DC) Additional Instructions: Every disease is a spectrum and a small chance still exists that a serious condition could develop, for this reason, please monitor yourself closely for new, changing or worsening symptoms, return of pain, uncontrollable pain, thick or foul-smelling discharge from your bellybutton, fever, inability to tolerate/keep down fluids or your medications, inability to follow up with outpatient providers as instructed and should you experience these symptoms or should you have any further concerns for your wellbeing please return to the ED or call 911 immediately. Please report to Dr. Leyva's office at 9 AM this morning at [address] [facility] PLEASE call your primary care physician as soon as possible to arrange / discuss plan for followup appointment. Appointment in the next 1-3 days is strongly encouraged if possible. PLEASE let us know here before you leave if there is anything further we can do to be of any assistance. Take care and feel Better! Referrals: Silvia Emanuel MD [Primary Care Provider] - 1-2 days Wan Leyva DO [Doctor of Osteopathic Medicine] - As Soon As Possible (Please report to Dr. Leyva's Office at 9 AM this morning )
[2025-02-01 04:26] LABS: Basophils # (A) 0.03 10*3/uL (0.00-0.10); Basophils % (A) 0.3 %; Eosinophils # (A) 0.15 10*3/uL (0.04-0.35); Eosinophils % (A) 1.7 %; HCT 40.7 % (39.6-50.0); HGB 14.7 g/dL (13.0-17.0); Lymphocytes # (A) 2.59 10*3/uL (0.90-5.00); Lymphocytes % (A) 28.9 %; MCH 31.3 pg (27.0-32.0); MCHC 36.1 g/dL (32.0-37.0); MCV 86.6 fL (80.0-97.0); Monocytes # (A) 0.87 10*3/uL (0.20-1.00); Monocytes % (A) 9.7 %; Neutrophils # (A) 5.28 10*3/uL (1.80-7.70); Neutrophils % (A) 59.0 %; Platelet Count 233 10*3/uL (140-440); RBC 4.70 10*6/uL (4.40-5.60); RDW 12.5 % (11.5-14.5); WBC 8.96 10*3/uL (4.50-10.00)
[2025-02-01 04:37] LABS: ALT 34 U/L (4-49); AST 24 U/L (17-59); African American GFR (CKD) >90 (>60 ml/min/1.73 sqM); Albumin 4.1 g/dL (3.5-5.0); Alkaline Phosphatase 50 U/L (38-126); Anion Gap 9 mmol/L; Blood Urea Nitrogen 12 mg/dL (9-20); Calcium 8.9 mg/dL (8.4-10.2); Carbon Dioxide 24 mmol/L (22-30); Chloride 107 mmol/L (98-107); Glucose 95 mg/dL (74-99); Non-African American GFR(CKD) >90 (>60 ml/min/1.73 sqM); Potassium 3.9 mmol/L (3.5-5.1); Sodium 140 mmol/L (137-145); Total Protein 6.5 g/dL (6.3-8.2)
[2025-02-01 05:47] VITALS: RESP 16
--- NOTE | 2025-02-01 06:26 | CT ---
EXAM: CT Abdomen and Pelvis With Intravenous Contrast CLINICAL HISTORY: Hernia TECHNIQUE: Axial computed tomography images of the abdomen and pelvis with intravenous contrast. CTDI is 22.3 mGy and DLP is 1183.9 mGy-cm. This CT exam was performed using one or more of the following dose reduction techniques: automated exposure control, adjustment of the mA and/or kV according to patient size, and/or use of iterative reconstruction technique. COMPARISON: No relevant prior studies available. FINDINGS: Lung bases: Unremarkable. No mass. No consolidation. ABDOMEN: Liver: Unremarkable. No mass. Gallbladder and bile ducts: Unremarkable. No calcified stones. No ductal dilation. Pancreas: Unremarkable. No mass. No ductal dilation. Spleen: Unremarkable. No splenomegaly. Adrenals: Unremarkable. No mass. Kidneys and ureters: Unremarkable. No solid mass. No hydronephrosis. Stomach and bowel: Unremarkable. No obstruction. No mucosal thickening. PELVIS: Appendix: Normal appendix. Bladder: Unremarkable. No mass. Reproductive: Unremarkable as visualized. ABDOMEN and PELVIS: Intraperitoneal space: Unremarkable. No free air. No significant fluid collection. Bones/joints: No acute fracture. No dislocation. Soft tissues: There is a small fat containing umbilical hernia with marked inflammatory stranding and thickening of the dermis. Vasculature: Unremarkable. No abdominal aortic aneurysm. Lymph nodes: Unremarkable. No enlarged lymph nodes. IMPRESSION: There is a small fat containing umbilical hernia with marked inflammatory stranding and thickening of the dermis. This likely represents infectious or inflammatory etiologies.
[2025-02-01 07:20] VITALS: BP 110/73; PULSE 59
== END 2025-02-01 07:17 | disposition home or self-care (01) ==
LOC: EC 01:37
DX: K42.9 Umbilical hernia without obstruction or gangrene (principal); F17.200 Nicotine dependence, unspecified, uncomplicated
CPT/HCPCS: 36415; 80053; 83605; 85025; 74177; 99284; Q9967